=== PATIENT | male | born 2000 | race Caucasian/White ===

== ENCOUNTER 2024-01-20 15:27 | Outpatient (CLI) | payer OTHER, SELFPAY ==
[2024-01-20 17:02] LABS: Free T4 Free Thyroxine* 0.97 ng/dL (0.70-1.85)
== END 2024-01-20 15:28 | disposition home or self-care (01) ==
PROVIDERS: PCP Internal Medicine; Visit Provider Internal Medicine Endocrinology, Diabetes & Metabolism
DX: E03.9 Hypothyroidism, unspecified (principal)
CPT/HCPCS: 36415; 84439; 84443

== ENCOUNTER 2024-01-31 11:38 | Outpatient (CLI) | payer OTHER, SELFPAY ==
--- OUTSIDE RECORDS SUMMARY | 2024-01-31 11:40 | XMS_ITS | Clinical Summary ---
Author Organization [facility] Address [address] [place] [address] Care Team Providers Care Flight Control Manager Name Role Phone Randy Martines M.D. Primary Care Provider [phone] Source Comments Patient records contain information from all sites at [facility]. For routine questions regarding patient records, call [phone] during business hours, M-F 8:00 AM - 5:00 PM Central Time. Record requests for emergency care only can be directed to [phone] at any time.[facility] Allergies No known active allergies Medications Medication Sig Dispensed Refills Start Date End Date Status venlafaxine XR (EFFEXOR-XR) 75 mg 24 hr capsule Take 75 mg by mouth daily. 11/19/2021 Active rosuvastatin (CRESTOR) 10 mg tablet Take 10 mg by mouth daily. Has not taking for a week due to insurance issues. 11/16/2021 Active Adderall XR 20 mg 24 hr capsule Take 20 mg by mouth every morning. Not taking currently will be contacting [facility] to get dosage cut in half. 02/19/2022 Active amitriptyline (ELAVIL) 10 mg tablet TAKE 1 TABLET BY MOUTH EVERYDAY AT BEDTIME 90 tablet 3 05/23/2022 Active SUMAtriptan (IMITREX) 50 mg tablet PLEASE SEE ATTACHED FOR DETAILED DIRECTIONS 9 tablet 1 09/05/2023 Active levothyroxine 75 mcg tabletIndication s:Hypothyroidism Take 1 tablet (75 mcg total) by mouth daily before morning meal. 90 tablet 3 01/29/2024 Active levothyroxine (SYNTHROID, LEVOTHROID) 25 mcg tabletIndication s:Hypothyroidism Take 1 tablet (25 mcg total) by mouth every morning before breakfast. 30 tablet 09/13/2023 Discontinued Active Problems Problem Noted Date Diagnosed Date Hypothyroidism 01/29/2024 Palpitations 01/29/2024 Thyroiditis Carol Ann's 01/29/2024 Hyperlipidemia Mixed 04/26/2022 Anxiety Generalized Disorder 04/26/2022 Depression Major Recurrent Full Remission 2021 Migraine Headache 04/26/2022 Encounters Date Type Department Care Team Description 01/29/2024 3:30 PM CDT Telemedicine Department of Endocrinology in [address] [phone] Oswaldo Ramos M.D. Hypothyroidism (Primary Dx); Thyroiditis Carol Ann's; Palpitations Discharge Disposition: Home or Self Care 01/01/2024 Clinical Communication Department of Endocrinology in [address] [phone] [place]Michelle, R.N. labs for endocrine from Last 3 Months Immunizations Name Administration Dates Next Due H1N1 All Forms 08/09/2009,06/14/2009 HepB Adult (HEPLISAV-B) 05/09/2022,04/26/2022, MMR 05/09/2022,03/20/2022 SARS-COV-2 (COVID-19) - PFIZ ER BIVALENT TS(Discontinued)(12 YEARS OR OLDER) 05/02/2022 Tdap 04/26/2022,03/11/2012 ABDULAZIZ 03/20/2022,03/11/2012 influenza vaccine quad (FLUZ ONE/FLUARIX) (6 months and older)(PF) 05/02/2022,07/10/2021 Family History Medical History Relation Name Comments Alcohol abuse Father Alex Crum Anxiety disorder Father Alex Crum Depression Father Alex Crum Asthma Paternal Grandmother Tory Crum Diabetes Paternal Grandmother Tory Radames Diabetes type II Paternal Grandmother Tory Radames Hyperlipidemia Paternal Grandmother Tory Radames Hypertension Paternal Grandmother Tory Crum Relation Name Status Comments Father Alex Crum Alive Paternal Grandmother Tory Crum Alive Social History Tobacco Use Types Packs/Day Years Used Date Smoking Tobacco: Never Passive Smoke Exposure: Never Smokeless Tobacco: Never Tobacco Cessation:Counseling Given: Yes Alcohol Use Standard Drinks/Week Comments Never 0 (1 standard drink = 0.6 oz pur e alcohol) [facility] Utilities Answer Date Recorded In the past 12 months has e electric, gas, oil, or water company threatened to shut off services in your home? No 08/07/2023 Humiliation, Afraid, Rape, and Kick questionnair e Answer Date Recorded Within the last year, have y ou been afraid of your partner or ex-partner? No 04/21/2022 Within the last year, have y ou been humiliated or emotionally abused in other ways by your partner or ex-partner? No Within the last year, have y ou been kicked, hit, slapped, or otherwise physically hurt by your partner or ex-partner? No 04/21/2022 Within the last year, have y ou been raped or forced to have any kind of sexual activity by your partner or ex-partner? No 04/21/2022 Social Connection and Isolat ion Panel [NHANES] Answer Date Recorded In a typical week, how many times do you talk on the phone with family, friends, or neighbors? More than three times a week 04/21/2022 How often do you get togethe r with friends or relatives? Three times a week 04/21/2022 How often do you attend chur ch or yazidi services? Never 04/21/2022 Do you belong to any clubs o r organizations such as shinto groups, unions, fraternal or athletic groups, or school groups? No 04/21/2022 How often do you attend meet ings of the clubs or organizations you belong to? Never 04/21/2022 Are you , , di vorced, , never , or living with a partner? Living with partner 04/21/2022 AUDIT-C Answer Date Recorded Q1: How often do you have a drink containing alc ohol? Never 04/21/2022 Average Number of Drinks Not on file 022 Frequency of Binge Drinking Not on file 03/30 Overall Financial Resource Strain (CARDIA) Answe r Date Recorded How hard is it for you to pa y for the very basics like food, housing, medical care, and heating? Not very hard 04/21/2022 PHQ-2 Answer Date Recorded PHQ-2 Score 1 08/08/2023 [facility] - Occupational Stress Questionnaire Answer Date Recorded Do you feel stress - tense, restless, nervous, or anxious, or unable to sleep at night because your mind is troubled all the time - these days? To some extent 04/21/2022 Exercise Vital Sign Answer Date Recorde d On average, how many days pe r week do you engage in moderate to strenuous exercise (like a brisk walk)? 3 days 08/07/2023 On average, how many minutes do you engage in exercise at this level? 60 min 08/07/2023 Hunger Vital Sign Answer Date Recorded Within the past 12 months, y ou worried that your food would run out before you got the money to buy more. Sometimes true Within the past 12 months, t he food you bought just didn't last and you didn't have money to get more. Sometimes true 04/2024 PRAPARE - Transportation Answer Date Re corded In the past 12 months, has l ack of transportation kept you from medical appointments or from getting medications? No 07/29 In the past 12 months, has l ack of transportation kept you from meetings, work, or from getting things needed for daily living? No 08/07/2023 Depression Answer Date Recor ded PHQ-9 Total Score (max 27) 11 08/08 Nutrition Answer Date Recorded Nutrition: EVOO Fat Source Yes 08/07 On average, how many serving s of fruits and vegetables do you eat per day (serving size is equal to 1 cup or approximately the size of a tennis ball)? 3-5 08/07/2023 Dental Answer Date Recorded Dental: Regular Dentist Yes 04/21/20 Employment Answer Date Recorded Employment status Employed and actively working without restrictions 08/07/2023 Housing Stability Answer Date Recorded What is your living situation today? I have a [facility] place to live 08/07/2023 Education Answer Date Recorded What is the highest level of school you have completed or the highest degree you have received? Some college, no degree 04/21/2022 Sex and Gender Information Value Date Recorded Sex Assigned at Male 04/26/2022 7:33 AM CDT Gender Identity Male 04/26/2022 7:33 AM CDT Sexual Orientation Bisexual 04/26/2022 7: 33 AM CDT Last Filed Vital Signs Vital Sign Reading Time Taken Comments Blood Pressure 132/86 09/16/2023 4:15 PM FINANCIAL ASSISTANCE SPECIALIST Pulse 106 09/16/2023 4:15 PM FINANCIAL ASSISTANCE SPECIALIST Temperature 36.7 ??C (98.1 ??F) 09/16/2023 4:15 PM CS T Respiratory Rate 20 09/16/2023 4:15 PM FINANCIAL ASSISTANCE SPECIALIST Oxygen Saturation 98% 08/08/2023 4:19 PM FINANCIAL ASSISTANCE SPECIALIST Inhaled Oxygen Concentration - - Weight 94.3 kg (207 lb 14.3 oz) 01/29/2024 3:22 PM CDT Height 174 cm (5' 8.5) 08/08/2023 4:19 PM FINANCIAL ASSISTANCE SPECIALIST Body Mass Index 31.15 08/08/2023 4:19 PM FINANCIAL ASSISTANCE SPECIALIST Plan of Treatment Health Maintenance Due Date Last Done Comments HIV Screening 2000 Hepatitis C Screening 2000 HPV Vaccines (1 - Male 3-dos e series) 01/17/2015 COVID-19 Vaccine (4 - 2022-2 4 season) 2023 05/02/2022, 12/01/2020, 11/10/2020 Depression Monitoring (PHQ-9) 12/07/2023 08/08/2023 Influenza Vaccine (#1) 2024 , 07/10/2021 Thyroid Stimulating Hormone (TSH) test for thyroid function 09/16/2024 09/16/2023, 08/08/2023, 08/05/2023 Lipid (Cholesterol) Screening 08/08/2028 08/08/2023 DTaP,Tdap,and Td Vaccines (3 - Td or Tdap) 04/26/2032 04/26/2022, 03/11/2012 Varicella Vaccines Completed 03/20/2022, 03/11/2012 Hepatitis B Vaccines Completed 05/09/2022, 04/26/2022, 03/20/2022 Pneumococcal vaccine (0-64 years) Aged Out No longer eligible b ased on patient's age to complete this topic Procedures Procedure Name Priority Date/Time Associated Diagnosis Comments THYROID FUNCTION CASCADE, S Routine 09/16/2023 5:21 PM FINANCIAL ASSISTANCE SPECIALIST Hypothyroidism LIPID PANEL, S Routine 08/08/2023 4:51 PM FINANCIAL ASSISTANCE SPECIALIST Screening Condition from Last 3 Months or Most Recently Relevant to Health Maintenance Results * (ABNORMAL) Thyroid Function [place] (09/16/2023 5:21 PM FINANCIAL ASSISTANCE SPECIALIST) TSH, Sensitive 6.2(H) 0.3 - 4.2 mIU/L 09/16/2023 6:12 PM FINANCIAL ASSISTANCE SPECIALIST NPRG Blood (Blood, Venous) 09/16/2023 5:21 PM FINANCIAL ASSISTANCE SPECIALIST 09/16/2023 5:35 PM FINANCIAL ASSISTANCE SPECIALIST Robbi Nation M.D. LAB BLOOD ADD-ON [facility] [address] [place] [address], [facility] NPRG [facility] [address] [place] [address] * (ABNORMAL) Lipid Panel (08/08/2023 4:51 PM FINANCIAL ASSISTANCE SPECIALIST) Triglycerides 266(H) mg/dL 08/08/2023 8:43 PM FINANCIAL ASSISTANCE SPECIALIST NPRG Comment: ----REFERENCE VALUE---- Normal: <150 mg/dL Borderline High: 150-199 mg/dL High: 200-499 mg/dL Very High: > or =500 mg/dL Cholesterol, Total 255(H) mg/dL 2023 8:43 PM FINANCIAL ASSISTANCE SPECIALIST NPRG Comment: ----REFERENCE VALUE---- Desirable: < 200 mg/dL Borderline High: 200 - 239 mg/dL High: > or = 240 mg/dL Cholesterol, LDL, Calculated 168(H) mg/dL 08/08/2023 8:43 PM FINANCIAL ASSISTANCE SPECIALIST NPRG Comment: ----REFERENCE VALUE---- Desirable: <100 mg/dL Above Desirable: 100-129 mg/dL Borderline High: 130-159 mg/dL High: 160-189 mg/dL Very High: >=190 mg/dL ----ADDITIONAL INFORMATION---- LDL cholesterol calculated using the Young/NIH equation. Cholesterol, HDL 37(L) >=40 mg/dL 08/08/19 8:43 PM FINANCIAL ASSISTANCE SPECIALIST NPRG Cholesterol, Non-HDL, Calculated 218(H) mg/dL 08/08/2023 8:43 PM FINANCIAL ASSISTANCE SPECIALIST NPRG Comment: ----REFERENCE VALUE---- Desirable: <130 mg/dL Above Desirable: 130-159 mg/dL Borderline High: 160-189 mg/dL High: 190-219 mg/dL Very High: > or =220 mg/dL Fasting (8 HR or more) No 08/08/2023 7:23 PM FINANCIAL ASSISTANCE SPECIALIST NPRG Blood (Blood, Venous) 08/08/2023 4:51 PM FINANCIAL ASSISTANCE SPECIALIST 08/08/2023 7:23 PM FINANCIAL ASSISTANCE SPECIALIST Robbi Nation M.D. LAB BLOOD ADD-ON [facility] [address] [place] [address], [facility] NPRG [facility] [address] [place] [address] from Last 3 Months or Most Recently Relevant to Health Maintenance Care Teams Flight Control Manager Relationship Specialty Start Date End Date Randy Martines M.D. [address] [place] [phone] PCP - General Family Medicine 04/26/22
--- OUTSIDE RECORDS SUMMARY | 2024-01-31 11:40 | XMS_ITS | Encounter Summary ---
Author Organization [facility] Address [address] [place] [address] Care Team Providers Care Market Survey Representative Name Role Phone Randy Martines M.D. Primary Care Provider [phone] Reason for Referral * Outpatient (Routine) - Authorized Specialty Diagnoses / Procedures Referred By Nicolette martinez Referred To Contact Diagnoses Hypothyroidism Thyroiditis Carol Ann's Procedures US Thyroid Oswaldo Ramos M.D. [address] [place] [address] [facility] Referral ID Status Reason Start Date Expiration Date V isits Requested Visits Authorized [id number] Authorized 01/29/2024 01/28/2025 1 1 Reason for Visit * Reason Comments Hypothyroidism * Outpatient (Routine) - Closed Specialty Diagnoses / Procedures Referred By Nicolette martinez Referred To Contact Endocrinology Diagnoses Hypothyroidism Robbi Nation M.D. [address] [place] [phone] [facility] Referral ID Status Reason Start Date Expiration Date Visits Re quested Visits Authorized [id number] Closed 09/20/2023 03/21/2025 1 1 Encounter Details Date Type Department Care Team (Latest Contact Info) Description 01/29/2024 3:30 PM CDT Telemedicine Department of Endocrinology in [place], [place] [address] [place] [phone] Oswaldo Ramos M.D. [address] [place] [phone] Hypothyroidism (Primary Dx); Thyroiditis Carol Ann's; Palpitations Discharge Disposition: Home or Self Care Social History Tobacco Use Types Packs/Day Years Used Date Smoking Tobacco: Never Passive Smoke Exposure: Never Smokeless Tobacco: Never Alcohol Use Standard Drinks/Week Comments Never 0 (1 standard drink = 0.6 oz pur e alcohol) [facility] Utilities Answer Date Recorded In the past 12 months has e [employer], gas, oil, or water [employer] threatened to shut off services in your [...] often do you attend chur ch or anabaptist services? Never 04/21/2022 Do you belong to any clubs o r organizations such as denominational groups, unions, fraternal or athletic groups, or [...] Answer Date Recorded PHQ-2 Score 1 08/08/2023 [facility] Occupat ional Health - Occupational Stress Questionnaire Answer Date Recorded [...] living situation today? I have a [facility] place to live 08/07/2023 Education Answer Date Recorded What is the highest level of school you have completed or the highest degree you have received? Some college, no degree 04/21/2022 Sex and Gender Information Value Date Recorded Sex Assigned at Male 04/26/2022 7:33 AM CDT Gender Identity Male 04/26/2022 7:33 AM CDT Sexual Orientation Bisexual 04/26/2022 7: 33 AM CDT documented as of this encounter Last Filed Vital Signs Vital Sign Reading Time Taken Comments Blood Pressure - - Pulse - - Temperature - - Respiratory Rate - - Oxygen Saturation - - Inhaled Oxygen Concentration - - Weight 94.3 kg (207 lb 14.3 oz) 01/29/2024 3:22 PM CDT Height - - Body Mass Index 31.15 08/08/2023 4:19 PM RANGE MECHANIC documented in this encounter Consult Notes * Oswaldo Ramos M.D. - 01/29/2024 3:30 PM CDT Endocrinology Clinic Note New Consult Date:01/29/2024 Visit conducted via real-time audio/video technology by Oswaldo Ramos M.D. in [facility] to the patient in patient's home in [place], [place] Chief Complaint Hypothyroidism Referred by Robbi Nation M.D. History of Present Illness Salvador Crum is a 24 y.o. male with PMH as below who presents to clinic for hypothyroidism. The patient has a constellation of symptoms including chronic headaches, occasional fatigue, ongoing weight gain despite watching his diet and being on Adderall, occasional palpitations and tachycardia, muscle twitching, increased sweating, bowel movements fluctuate between diarrhea and constipation. He had his TSH checked in 07/2023 which was mildly elevated at 6.3, 2 days later it was repeated with a TSH of 5 and normal free T4 of 1.2 (this was on levothyroxine for 2 days), his PCP started him on 25 mcg of levothyroxine daily which he has been taking since then, he continued to show elevated TSH on repeated testing, currently his free T4 is low normal. He also reports 10 years history of throat discomfort with the need to frequently clear his throat,allergy medications did not help, acid reducing medications does not help. He has not aware of any family history of thyroid disorders. He is currently on levothyroxine 25 mcg daily, he does not believe that his symptoms improved afterstarting levothyroxine. He has been regularly taking it every morning. Past Medical History: Diagnosis Date Anxiety Generalized Disorder Depressive Disorder Hyperlipidemia 01/30/2020 Migraine Headache No past surgical history on file. Social History Tobacco Use Smoking status: Never Passive exposure: Never Smokeless tobacco: Never Vaping Use Vaping status: never used Substance Use Topics Alcohol use: Never Drug use: Never Family History Problem Relation Name Age of Onset Anxiety disorder Father Alex Crum Depression Father Alex Crum Alcohol abuse Father Alex Crum Diabetes type II Paternal Grandmother Tory Crum Asthma Paternal Grandmother Tory Crum Hypertension Paternal Grandmother Tory Crum Hyperlipidemia Paternal Grandmother Tory Crum Diabetes Paternal Grandmother Tory Crum No Known Allergies Current Outpatient Medications Medication Sig Dispense Refill levothyroxine 75 mcg tablet Take 1 tablet (75 mcg total) by mouth daily before morning meal. 90 tablet 3 Adderall XR 20 mg 24 hr capsule Take 20 mg by mouth every morning. Not taking currently will be contacting [facility] to get dosage cut in half. amitriptyline (ELAVIL) 10 mg tablet TAKE 1 TABLET BY MOUTH EVERYDAY AT BEDTIME 90 tablet 3 rosuvastatin (CRESTOR) 10 mg tablet Take 10 mg by mouth daily. Has not taking for a week due to insurance issues. SUMAtriptan (IMITREX) 50 mg tablet PLEASE SEE ATTACHED FOR DETAILED DIRECTIONS 9 tablet 1 venlafaxine XR (EFFEXOR-XR) 75 mg 24 hr capsule Take 75 mg by mouth daily. No current facility-administered medications for this visit. Review of Systems A 10-system review was conducted and was negative except for what's noted in the HPI. The followingsystems were reviewed: Constitutional, cardiovascular, respiratory, gastrointestinal, genitourinary, musculoskeletal, neurologic, psychiatric, endocrinological, and hematological. Physical Examination Vitals: 01/29/24 1522 Weight: 94.3 kg No vitals taken during virtual visit. General: well developed, alert, oriented, not in distress Neck: appears supple, no visible goiter or nodules Pulmonary: easy work of breathing Cardiovascular: appears warm and well-perfused Neurological: alert and oriented, conversant Review of Labs The following labs were reviewed and discussed with the patient on 01/29/2024 01/19/2025 TSH 5.23 (H) Free T4 0.97 Latest Reference Range & Units 08/05/23 19:00 08/08/23 16:51 09/16/23 17:21 TSH, Sensitive 0.3 - 4.2 mIU/L 6.3 (H) 5.0 (H) 6.2 (H) T4 (Thyroxine), Free, S 0.9 - 1.7 ng/dL 1.2 1.2 Latest Reference Range & Units 09/16/23 17:21 Thyroperoxidase Ab, S <34.0 IU/mL 417.0 (H) Radiology Review The following radiological reports/images were reviewed and discussed with the patient on 01/29/2024 Chart Review Previous records, other specialties and external notes were reviewed on 01/29/2024 and included in the note Assessment And Plan Salvador Crum is a 24 y.o. male with #1 Hypothyroidism #2 Thyroiditis Carol Ann's #3 Palpitations The patient has a constellation of symptoms that could be consistent with hypothyroidism. His TSH was mildly elevated before starting levothyroxine and continues to be elevated on levothyroxine 25 mcg daily started by his PCP. I do not have free T4 levels before initiating levothyroxine so I am notsure if his blood work was consistent with subclinical hypothyroidism versus primary hypothyroidism. 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 I explained to the patient that the cause of Carol Ann's thyroiditis is thought to be a combinationof genetic susceptibility and environmental factors. I explained that it is an autoimmune-mediated destruction of the thyroid gland (cell and antibody mediated) Based on his weight, his levothyroxine dose should be close to 150 mcg daily, however because his blood work is showing only mildly low free T4 I would put him on a lower dose, we will increase to 75mcg daily. Due to his symptoms of palpitations, increased sweating, headaches, I want to rule out pheochromocytoma however I have very low clinical suspicion for this. The patient is on Adderall, he will hold it for 1 week before testing. Plan: Increase levothyroxine to 75 mcg daily He was counseled about the proper way of taking levothyroxine to guarantee full absorption No need to monitor TPO levels Obtain ultrasound of the thyroid due to his ongoing neck/throat area discomfort Check TSH, free T4 in 2 months Check plasma metanephrines with next set of labs All questions were answered to my best knowledge. Thanks for referring this pleasant patient to endocrinology Oswaldo Ramos MD.................... 01/29/2024 Endocrinology, Diabetes and Metabolism documented in this encounter Plan of Treatment Scheduled Orders Name Type Priority Associated Diagnoses Orde r Schedule US Thyroid Imaging RAD - Routine (m ost inpatients and all outpatients) Hypothyroidism Thyroiditis Carol Ann's Expected: 01/29/2024, Expires: 04/30/2025 S-TSH (Thyroid-Stimulati ng Hormone - Sensitive) Lab Routine Hypothyroidism Thyroiditis Carol Ann's Expected: 03/31/2024, Expires: 07/31/2024 T4 (Thyroxine), Free Lab Routine Hypothyroidism Thyroiditis Carol Ann's Expected: 03/31/2024, Expires: 07/31/2024 Metanephrines, Fractionated, Free Lab Routine Palpitations Expected: 03/31/2024, Expires: 04/30/2025 documented as of this encounter Visit Diagnoses Diagnosis Hypothyroidism- Primary Thyroiditis Carol Ann's Palpitations documented in this encounter Additional Health Concerns Assessment Noted Time PHQ-9 Depression Total Score: 11 024 4:21 PM RANGE MECHANIC documented as of this encounter Care Teams Market Survey Representative Relationship Specialty Start Date End Date Randy Martines M.D. [address] [facility] [place] [phone] PCP - General Family Medicine 04/26/22 documented as of this encounter
--- OUTSIDE RECORDS SUMMARY | 2024-01-31 11:40 | XMS_ITS | Referral Summary ---
Author Organization [facility] Address [address] [place] [address] Care Team Providers Care Bar Attendant Name Role Phone Randy Martines M.D. Primary Care Provider [phone] Source Comments Patient records contain information from all sites at [facility]. For routine questions regarding patient records, call [phone] during business hours, M-F 8:00 AM - 5:00 PM Central Time. Record requests for emergency care only can be directed to [phone] at any time.[facility] Encounters Date Type Department Care Team Description 01/29/2024 3:30 PM CDT Telemedicine Department of Endocrinology in [address] [phone] Oswaldo Ramos M.D. Hypothyroidism (Primary Dx); Thyroiditis Carol Ann's; Palpitations Discharge Disposition: Home or Self Care 01/01/2024 Clinical Communication Department of Endocrinology in [address] [phone] MarbleMichelle, RMollyNMolly labs for endocrine from Last 3 Months Allergies No known active allergies Medications Medication [...] Recurrent Full Remission 2021 Migraine Headache 04/26/2022 Immunizations Name Administration Dates Next Due H1N1 All Forms 08/09/2009,06/14/2009 HepB Adult (HEPLISAV-B) 05/09/2022,04/26/2022, MMR 05/09/2022,03/20/2022 SARS-COV-2 (COVID-19) - PFIZ ER BIVALENT TS(Discontinued)(12 YEARS OR OLDER) 05/02/2022 Tdap 04/26/2022,03/11/2012 ABDULAZIZ 03/20/2022,03/11/2012 influenza vaccine quad (FLUZ ONE/FLUARIX) (6 months and older)(PF) 05/02/2022,07/10/2021 Social History Tobacco Use Types Packs/Day Years Used Date Smoking Tobacco: Never Passive Smoke Exposure: Never Smokeless Tobacco: Never Tobacco Cessation:Counseling Given: Yes Alcohol Use Standard Drinks/Week Comments Never 0 (1 standard drink = 0.6 oz pur e alcohol) [facility] Utilities Answer Date Recorded In the past [...] week 04/21/2022 How often do you attend [facility] or sikhism services? Never 04/21/2022 Do you belong to any clubs o r organizations such as sikh groups, unions, fraternal or athletic groups, or [...] Answer Date Recorded PHQ-2 Score 1 08/08/2023 [facility] of Occupat ional Health - Occupational Stress [...] your living situation today? I have a [facility] place to live 08/07/2023 Education Answer Date [...] Comments Blood Pressure 132/86 09/16/2023 4:15 PM CLIENT TECHNOLOGIES SPECIALIST Pulse 106 09/16/2023 4:15 PM CLIENT TECHNOLOGIES SPECIALIST Temperature 36.7 ??C (98.1 ??F) 09/16/2023 4:15 PM CS T Respiratory Rate 20 09/16/2023 4:15 PM CLIENT TECHNOLOGIES SPECIALIST Oxygen Saturation 98% 08/08/2023 4:19 PM CLIENT TECHNOLOGIES SPECIALIST Inhaled Oxygen Concentration - - Weight 94.3 kg (207 lb 14.3 oz) 01/29/2024 3:22 PM CDT Height 174 cm (5' 8.5) 08/08/2023 4:19 PM CLIENT TECHNOLOGIES SPECIALIST Body Mass Index 31.15 08/08/2023 4:19 PM CLIENT TECHNOLOGIES SPECIALIST Plan of Treatment Not on file Procedures Procedure Name Priority Date/Time Associated Diagnosis Comments THYROID FUNCTION CASCADE, S Routine 09/16/2023 5:21 PM CLIENT TECHNOLOGIES SPECIALIST Hypothyroidism LIPID PANEL, S Routine 08/08/2023 4:51 PM CLIENT TECHNOLOGIES SPECIALIST Screening Condition from Last 3 Months or Most Recently Relevant to Health Maintenance Results * (ABNORMAL) Thyroid Function [place] (09/16/2023 5:21 PM CLIENT TECHNOLOGIES SPECIALIST) TSH, Sensitive 6.2(H) 0.3 - 4.2 mIU/L 09/16/2023 6:12 PM CLIENT TECHNOLOGIES SPECIALIST NPRG Blood (Blood, Venous) 09/16/2023 5:21 PM CLIENT TECHNOLOGIES SPECIALIST 09/16/2023 5:35 PM CLIENT TECHNOLOGIES SPECIALIST Robbi Nation M.D. LAB BLOOD ADD-ON [facility] [address] [place] [address], [facility] NPRG [facility] [address] [place] [address] * (ABNORMAL) Lipid Panel (08/08/2023 4:51 PM CLIENT TECHNOLOGIES SPECIALIST) Triglycerides 266(H) mg/dL 08/08/2023 8:43 PM CLIENT TECHNOLOGIES SPECIALIST NPRG Comment: ----REFERENCE VALUE---- Normal: <150 mg/dL Borderline High: 150-199 mg/dL High: 200-499 mg/dL Very High: > or =500 mg/dL Cholesterol, Total 255(H) mg/dL 2023 8:43 PM CLIENT TECHNOLOGIES SPECIALIST NPRG Comment: ----REFERENCE VALUE---- Desirable: < 200 mg/dL Borderline High: 200 - 239 mg/dL High: > or = 240 mg/dL Cholesterol, LDL, Calculated 168(H) mg/dL 08/08/2023 8:43 PM CLIENT TECHNOLOGIES SPECIALIST NPRG Comment: ----REFERENCE VALUE---- Desirable: <100 mg/dL Above Desirable: 100-129 mg/dL Borderline High: 130-159 mg/dL High: 160-189 mg/dL Very High: >=190 mg/dL ----ADDITIONAL INFORMATION---- LDL cholesterol calculated using the Young/NIH equation. Cholesterol, HDL 37(L) >=40 mg/dL 08/08/19 8:43 PM CLIENT TECHNOLOGIES SPECIALIST NPRG Cholesterol, Non-HDL, Calculated 218(H) mg/dL 08/08/2023 8:43 PM CLIENT TECHNOLOGIES SPECIALIST NPRG Comment: ----REFERENCE VALUE---- Desirable: <130 mg/dL Above Desirable: 130-159 mg/dL Borderline High: 160-189 mg/dL High: 190-219 mg/dL Very High: > or =220 mg/dL Fasting (8 HR or more) No 08/08/2023 7:23 PM CLIENT TECHNOLOGIES SPECIALIST NPRG Blood (Blood, Venous) 08/08/2023 4:51 PM CLIENT TECHNOLOGIES SPECIALIST 08/08/2023 7:23 PM CLIENT TECHNOLOGIES SPECIALIST Robbi Nation M.D. LAB BLOOD ADD-ON [facility] [address] [place] [address], [facility] NPRG [facility] [address] [place] [address] from Last 3 Months or Most Recently Relevant to Health Maintenance Care Teams Bar Attendant Relationship Specialty Start Date End Date Randy Martines M.D. [facility] [place] [phone] PCP - General Family Medicine 04/26/22
--- OUTSIDE RECORDS SUMMARY | 2024-01-31 11:40 | XMS_ITS | Encounter Summary ---
Author Organization [facility] Address [address] [place] [address] Care Team Providers Care Structural Draftsman Name Role Phone Randy Martines M.D. Primary Care Provider [phone] Reason for Visit * Reason Onset Date Comments labs for endocrine 01/01/2024 Encounter Details Date Type Department Care Team (Latest Contact Info) Description 01/01/2024 Clinical Communication Department of Endocrinology in [place], [place] [address] [place] [phone] [place]Michelle, RMollyN. [address] [place] [phone] labs for endocrine Social History Tobacco Use Types Packs/Day Years Used Date Smoking Tobacco: Never Passive Smoke Exposure: Never Smokeless Tobacco: Never Alcohol Use Standard Drinks/Week Comments Never 0 (1 standard drink = 0.6 oz pur e alcohol) [facility] Utilities Answer Date Recorded In the past 12 months has [facility] [employer], oil, or water [employer] threatened to shut off services in your [...] often do you attend chur ch or mu-ism services? Never 04/21/2022 Do you belong to any clubs o r organizations such as latter day groups, unions, fraternal or athletic groups, or [...] Answer Date Recorded PHQ-2 Score 1 08/08/2023 [facility] of Occupat ionin Health - Occupational Stress Questionnaire Answer Date [...] your living situation today? I have a [facility] place to live 08/07/2023 Education Answer [...] AM CDT documented as of this encounter Miscellaneous Notes * Telephone Encounter - Michelle Pena RNamita - 01/21/2024 9:40 AM CDT Images from the original note were not included. Pt has had 2 recent TPO but is wondering if you would repeat for 01/28 new consult documented in this encounter Plan of Treatment Scheduled Orders Name Type Priority Associated Diagnoses Orde r Schedule S-TSH (Thyroid-Stimulating Hormone - Sensitive) Lab Routine Hypothyroidism Expected: 01/20/2024, Expires: 04/02/2025 T4 (Thyroxine), Free Lab Routine Hypothyroidism Expected: 01/20/2024, Expires: 04/02/2025 documented as of this encounter Visit Diagnoses Diagnosis Hypothyroidism- Primary documented in this encounter Additional Health Concerns Assessment Noted Time PHQ-9 Depression Total Score: 11 024 4:21 PM SCIENTIFIC RECRUITER documented as of this encounter Care Teams Structural Draftsman Relationship Specialty Start Date End Date Randy Martines M.D. [address] [place] [phone] PCP - General Family Medicine 04/26/22 documented as of this encounter
--- OUTSIDE RECORDS SUMMARY | 2024-01-31 11:40 | XMS_ITS ---
Author Organization [facility] Address [address] [place] [address] Care Team Providers Care Chrome Cleaner Name Role Phone Unavailable Unavailable Unavailable Surgery Details Not on file Complications Check Surgery Details section. Procedure Estimated Blood Loss Check Surgery Details section. Procedure Findings Check Surgery Details section. Procedure Specimens Taken Check Surgery Details section.
--- NOTE | 2024-01-31 11:45 | CRLHL7_ITS ---
For Patients: As a result of the Century Cures Act, medical imaging exams and procedure reports are released immediately into your electronic medical record. You may view this report before your referring provider. If you have questions, please contact your health care provider. INDICATION: Hypothyroidism COMPARISON: none TECHNIQUE: Eric scale and color Doppler images were acquired of the thyroid gland. FINDINGS: Hyperechoic nodule within the left thyroid lobe measures 4 x 4 x 5 millimeters, TR 3. The right lobe measures 4.5 x 1.5 x 1.6 cm and the left lobe measures 3.9 x 1.5 x 1.2 cm in size. Isthmus measures 3 millimeters. The color Doppler images demonstrate normal vascularity. There is no evidence of cervical lymphadenopathy or parathyroid mass. IMPRESSION: Incidental subcentimeter left thyroid lobe nodule which does not require follow-up. The remainder of the examination is within normal limits. Dictated by Juan Hunter MD @ 01/31/2024 12:50:51 PM (Electronically Signed)
== END 2024-01-31 11:39 | disposition home or self-care (01) ==
LOC: US 11:39
PROVIDERS: PCP Internal Medicine
DX: E03.9 Hypothyroidism, unspecified (principal); E06.3 Autoimmune thyroiditis
CPT/HCPCS: 76536

== ENCOUNTER 2024-02-14 12:13 | Emergency (ER) | payer OTHER, SELFPAY ==
[2024-02-14 12:19] VITALS: BP 141/99; PULSE 105; RESP 16; TEMP 36.6; O2SAT 98; BMI 30.1
--- OUTSIDE RECORDS SUMMARY | 2024-02-14 12:55 | XMS_ITS | Clinical Summary ---
Author Organization [facility] Address [address] [place] [address] Care Team Providers Care Strategy Lead Name Role Phone Randy Martines M.D. Primary Care Provider [phone] Source Comments Patient records contain information from all sites at [facility]. For routine questions regarding patient records, call [phone] during business hours, M-F 8:00 AM - 5:00 PM Central Time. Record requests for emergency care only can be directed to [phone] at any time.[facility] Allergies No known active allergies Medications [...] PM CDT Telemedicine Department of Endocrinology in [address] [phone] Oswaldo Ramos M.D. Hypothyroidism (Primary Dx); Thyroiditis Carol Ann's; Palpitations Discharge Disposition: Home or Self Care 01/01/2024 Clinical Communication Department of Endocrinology in [address] [phone] WilliamsMichelle, R.N. labs for endocrine from Last 3 [...] drink = 0.6 oz pur e alcohol) [facility] Utilities Answer Date Recorded In the [...] often do you attend chur ch or latter day services? Never 04/21/2022 Do you belong to any clubs o r organizations such as yazdanism groups, unions, fraternal or athletic groups, or [...] Answer Date Recorded PHQ-2 Score 1 08/08/2023 [facility] of Occupat ional [facility] - Occupational Stress Questionnaire Answer Date Recorded [...] living situation today? I have a [facility] place to live 08/07/2023 Education Answer [...] Comments Blood Pressure 132/86 09/16/2023 4:15 PM ELECTRICAL ACCESSORIES I ASSEMBLER Pulse 106 09/16/2023 4:15 PM ELECTRICAL ACCESSORIES I ASSEMBLER Temperature 36.7 ??C (98.1 ??F) 09/16/2023 4:15 PM CS T Respiratory Rate 20 09/16/2023 4:15 PM ELECTRICAL ACCESSORIES I ASSEMBLER Oxygen Saturation 98% 08/08/2023 4:19 PM ELECTRICAL ACCESSORIES I ASSEMBLER Inhaled Oxygen Concentration - - Weight 94.3 kg (207 lb 14.3 oz) 01/29/2024 3:22 PM CDT Height 174 cm (5' 8.5) 08/08/2023 4:19 PM ELECTRICAL ACCESSORIES I ASSEMBLER Body Mass Index 31.15 08/08/2023 4:19 PM ELECTRICAL ACCESSORIES I ASSEMBLER Plan of Treatment Health Maintenance Due Date [...] Procedure Name Priority Date/Time Associated Diagnosis Comments OUTSIDE US BODY Routine 01/31/2024 12:00 PM CDT THYROID FUNCTION CASCADE, S Routine 09/16/2023 5:21 PM ELECTRICAL ACCESSORIES I ASSEMBLER Hypothyroidism LIPID PANEL, S Routine 08/08/2023 4:51 PM ELECTRICAL ACCESSORIES I ASSEMBLER Screening Condition from Last 3 Months or Most Recently Relevant to Health Maintenance Results * US THYROID-Outside US Body (01/31/2024 12:00 PM CDT) 01/31/2024 11:5 7 AM CDT Narrative IIMS - 01/31/2024 12:18 PM CDT This order has been created and auto-finalized to support the import of outside images. If available, original interpretation can be found on the Media Tab in Chart Review, in Document Viewer, as an image in QREADS or as an Addendum. If a re-interpretation or overread is required please follow defined workflow.?? Provider Not In System IMG US PROCEDURES IIRI NA * (ABNORMAL) Thyroid Function [place] (09/16/2023 5:21 PM ELECTRICAL ACCESSORIES I ASSEMBLER) TSH, Sensitive 6.2(H) 0.3 - 4.2 mIU/L 09/16/2023 6:12 PM ELECTRICAL ACCESSORIES I ASSEMBLER NPRG Blood (Blood, Venous) 09/16/2023 5:21 PM ELECTRICAL ACCESSORIES I ASSEMBLER 09/16/2023 5:35 PM ELECTRICAL ACCESSORIES I ASSEMBLER Robbi Nation M.D. LAB BLOOD ADD-ON [facility] [address] [place] [address], [facility] NPRG [facility] [address] [place] [address] * (ABNORMAL) Lipid Panel (08/08/2023 4:51 PM ELECTRICAL ACCESSORIES I ASSEMBLER) Triglycerides 266(H) mg/dL 08/08/2023 8:43 PM ELECTRICAL ACCESSORIES I ASSEMBLER NPRG Comment: ----REFERENCE VALUE---- Normal: <150 mg/dL Borderline High: 150-199 mg/dL High: 200-499 mg/dL Very High: > or =500 mg/dL Cholesterol, Total 255(H) mg/dL 2023 8:43 PM ELECTRICAL ACCESSORIES I ASSEMBLER NPRG Comment: ----REFERENCE VALUE---- Desirable: < 200 mg/dL Borderline High: 200 - 239 mg/dL High: > or = 240 mg/dL Cholesterol, LDL, Calculated 168(H) mg/dL 08/08/2023 8:43 PM ELECTRICAL ACCESSORIES I ASSEMBLER NPRG Comment: ----REFERENCE VALUE---- Desirable: <100 mg/dL Above Desirable: 100-129 mg/dL Borderline High: 130-159 mg/dL High: 160-189 mg/dL Very High: >=190 mg/dL ----ADDITIONAL INFORMATION---- LDL cholesterol calculated using the Young/NIH equation. Cholesterol, HDL 37(L) >=40 mg/dL 08/08/19 8:43 PM ELECTRICAL ACCESSORIES I ASSEMBLER NPRG Cholesterol, Non-HDL, Calculated 218(H) mg/dL 08/08/2023 8:43 PM ELECTRICAL ACCESSORIES I ASSEMBLER NPRG Comment: ----REFERENCE VALUE---- Desirable: <130 mg/dL Above Desirable: 130-159 mg/dL Borderline High: 160-189 mg/dL High: 190-219 mg/dL Very High: > or =220 mg/dL Fasting (8 HR or more) No 08/08/2023 7:23 PM ELECTRICAL ACCESSORIES I ASSEMBLER NPRG Blood (Blood, Venous) 08/08/2023 4:51 PM ELECTRICAL ACCESSORIES I ASSEMBLER 08/08/2023 7:23 PM ELECTRICAL ACCESSORIES I ASSEMBLER Robbi Nation M.D. LAB BLOOD ADD-ON [facility] [address] [place] [address], [facility] NPRG [facility] [address] [place] [address] from Last 3 Months or Most Recently Relevant to Health Maintenance Care Teams Strategy Lead Relationship Specialty Start Date End Date Randy Martines M.D. [address] [place] [phone] PCP - General Family Medicine 04/26/22
[2024-02-14] MEDS: ONDANSETRON ODT 4 MG TAB PO (12:56)
[2024-02-14] MEDS: LORazepam 0.5 MG TABLET PO (12:56)
--- OUTSIDE RECORDS SUMMARY | 2024-02-14 12:56 | XMS_ITS | Encounter Summary ---
Author Organization [facility] Address [address] [place] [address] Care Team Providers Care Shake Feeder Name Role Phone Randy Martines M.D. Primary Care Provider [phone] Reason for Referral * Outpatient (Routine) - Authorized Specialty Diagnoses / Procedures Referred By Nicolette martinez Referred To Contact Diagnoses Hypothyroidism Thyroiditis Carol Ann's Procedures US Thyroid Oswaldo Ramos M.D. [address] [place] [phone] [facility] Referral ID Status Reason Start Date Expiration Date V isits Requested Visits Authorized [id number] Authorized 01/29/2024 01/28/2025 1 1 Reason for Visit * Reason Comments Hypothyroidism * Outpatient (Routine) - Closed Specialty Diagnoses / Procedures Referred By Nicolette martinez Referred To Contact Endocrinology Diagnoses Hypothyroidism Robbi Nation M.D. [address] [place] [address] [facility] Referral ID Status Reason Start Date Expiration Date Visits Re quested Visits Authorized [id number] Closed 09/20/2023 03/21/2025 1 1 Encounter Details Date Type Department Care Team (Latest Contact Info) Description 01/29/2024 3:30 PM CDT Telemedicine Department of Endocrinology in [place], [place] [address] [place] [phone] Oswaldo Ramos M.D. [address] [place] [phone] Hypothyroidism (Primary Dx); Thyroiditis Carol Ann's; Palpitations Discharge Disposition: Home or Self Care Social History Tobacco Use Types Packs/Day Years Used Date Smoking Tobacco: Never Passive Smoke Exposure: Never Smokeless Tobacco: Never Alcohol Use Standard Drinks/Week Comments Never 0 (1 standard drink = 0.6 oz pur e alcohol) [facility] Utilities Answer Date Recorded In the past 12 months has e [employer], gas, oil, or water [employer] threatened to shut off services in your [...] often do you attend chur ch or jew services? Never 04/21/2022 Do you belong to any clubs o r organizations such as tenriism groups, unions, fraternal or athletic groups, or [...] Answer Date Recorded PHQ-2 Score 1 08/08/2023 [facility] of Occupat ional Health - Occupational Stress [...] Body Mass Index 31.15 08/08/2023 4:19 PM OIL PUMP STATION OPERATOR CHIEF documented in this encounter Consult Notes * Oswaldo Ramos M.D. - 01/29/2024 3:30 PM CDT Endocrinology Clinic Note New Consult Date:01/29/2024 Visit conducted via real-time audio/video technology by Oswaldo Ramos M.D. in [facility] to the patient in patient's home in [place], [place] Chief Complaint Hypothyroidism Referred by Robbi [...] morning. Not taking currently will be contacting [facility] to get dosage cut in half. amitriptyline [...] Depression Total Score: 11 024 4:21 PM OIL PUMP STATION OPERATOR CHIEF documented as of this encounter Care Teams Shake Feeder Relationship Specialty Start Date End Date Randy Martines M.D. [address] [place] [phone] PCP - General Family Medicine 04/26/22 documented as of this encounter
--- OUTSIDE RECORDS SUMMARY | 2024-02-14 12:56 | XMS_ITS | Encounter Summary ---
Author Organization [facility] Address [address] [place] [address] Care Team Providers Care Senior Training Specialist Name Role Phone Randy Martines M.D. Primary Care Provider Reason for Visit * Reason Onset Date Comments labs for endocrine 01/01/2024 Encounter Details Date Type Department Care Team (Latest Contact Info) Description 01/01/2024 Clinical Communication Department of Endocrinology in [place], [place] [address] [place] [phone] DoudsMichelle, RMollyN. [address] [place] [phone] labs for endocrine Social History Tobacco Use Types Packs/Day Years Used Date Smoking Tobacco: Never Passive Smoke Exposure: Never Smokeless Tobacco: Never Alcohol Use Standard Drinks/Week Comments Never 0 (1 standard drink = 0.6 oz pur e alcohol) [facility] Utilities Answer Date Recorded In the past 12 months has [facility] [employer], oil, or water [employer] threatened to shut off services in your [...] often do you attend chur ch or samaritan services? Never 04/21/2022 Do you belong to any clubs o r organizations such as lutheran groups, unions, fraternal or athletic groups, or [...] Answer Date Recorded PHQ-2 Score 1 08/08/2023 [facility] of Occupat ionwi Health - Occupational Stress Questionnaire Answer Date [...] your living situation today? I have a [facility] place to live 08/07/2023 Education Answer Date [...] Depression Total Score: 11 024 4:21 PM SCREEN PRINTING INSPECTOR documented as of this encounter Care Teams Senior Training Specialist Relationship Specialty Start Date End Date Randy Martines M.D. [address] [facility] [place] [phone] PCP - General Family Medicine 04/26/22 documented as of this encounter
--- OUTSIDE RECORDS SUMMARY | 2024-02-14 12:56 | XMS_ITS | Referral Summary ---
Author Organization [facility] Address [address] [place] [address] Care Team Providers Care Boom Storage Name Role Phone Randy Martines M.D. Primary Care Provider [phone] Source Comments Patient records contain information from all sites at [facility]. For routine questions regarding patient records, call [phone] during business hours, M-F 8:00 AM - 5:00 PM Central Time. Record requests for emergency care only can be directed to [phone] at any time.[facility] Encounters Date Type Department Care Team Description 01/29/2024 3:30 PM CDT Telemedicine Department of Endocrinology in [address] [phone] Oswaldo Ramos M.D. Hypothyroidism (Primary Dx); Thyroiditis Carol Ann's; Palpitations Discharge Disposition: Home or Self Care 01/01/2024 Clinical Communication Department of Endocrinology in [address] [phone] [place]le, RMollyNMolly labs for endocrine from Last 3 [...] drink = 0.6 oz pur e alcohol) [facility] Utilities Answer Date Recorded In the [...] week 04/21/2022 How often do you attend [facility] or zoroastrian services? Never 04/21/2022 Do you belong to any clubs o r organizations such as sabianism groups, unions, fraternal or athletic groups, or [...] Answer Date Recorded PHQ-2 Score 1 08/08/2023 [facility] of Occupat ional Health - Occupational Stress [...] your living situation today? I have a [facility] place to live 08/07/2023 Education Answer [...] Comments Blood Pressure 132/86 09/16/2023 4:15 PM MANAGER TRACK Pulse 106 09/16/2023 4:15 PM MANAGER TRACK Temperature 36.7 ??C (98.1 ??F) 09/16/2023 4:15 PM CS T Respiratory Rate 20 09/16/2023 4:15 PM MANAGER TRACK Oxygen Saturation 98% 08/08/2023 4:19 PM MANAGER TRACK Inhaled Oxygen Concentration - - Weight 94.3 kg (207 lb 14.3 oz) 01/29/2024 3:22 PM CDT Height 174 cm (5' 8.5) 08/08/2023 4:19 PM MANAGER TRACK Body Mass Index 31.15 08/08/2023 4:19 PM MANAGER TRACK Plan of Treatment Not on file Procedures Procedure Name Priority Date/Time Associated Diagnosis Comments OUTSIDE US BODY Routine 01/31/2024 12:00 PM CDT THYROID FUNCTION CASCADE, S Routine 09/16/2023 5:21 PM MANAGER TRACK Hypothyroidism LIPID PANEL, S Routine 08/08/2023 4:51 PM MANAGER TRACK Screening Condition from Last 3 Months or [...] Provider Not In System IMG US PROCEDURES IIMS NA * (ABNORMAL) Thyroid Function [place] (09/16/2023 5:21 PM MANAGER TRACK) TSH, Sensitive 6.2(H) 0.3 - 4.2 mIU/L 09/16/2023 6:12 PM MANAGER TRACK NPRG Blood (Blood, Venous) 09/16/2023 5:21 PM MANAGER TRACK 09/16/2023 5:35 PM MANAGER TRACK Robbi Nation M.D. LAB BLOOD ADD-ON [facility] [address] [place] [address], [facility] NPRG [facility] [address] [place] [address] * (ABNORMAL) Lipid Panel (08/08/2023 4:51 PM MANAGER TRACK) Triglycerides 266(H) mg/dL 08/08/2023 8:43 PM MANAGER TRACK NPRG Comment: ----REFERENCE VALUE---- Normal: <150 mg/dL Borderline High: 150-199 mg/dL High: 200-499 mg/dL Very High: > or =500 mg/dL Cholesterol, Total 255(H) mg/dL 2023 8:43 PM MANAGER TRACK NPRG Comment: ----REFERENCE VALUE---- Desirable: < 200 mg/dL Borderline High: 200 - 239 mg/dL High: > or = 240 mg/dL Cholesterol, LDL, Calculated 168(H) mg/dL 08/08/2023 8:43 PM MANAGER TRACK NPRG Comment: ----REFERENCE VALUE---- Desirable: <100 mg/dL Above Desirable: 100-129 mg/dL Borderline High: 130-159 mg/dL High: 160-189 mg/dL Very High: >=190 mg/dL ----ADDITIONAL INFORMATION---- LDL cholesterol calculated using the Young/NIH equation. Cholesterol, HDL 37(L) >=40 mg/dL 08/08/19 8:43 PM MANAGER TRACK NPRG Cholesterol, Non-HDL, Calculated 218(H) mg/dL 08/08/2023 8:43 PM MANAGER TRACK NPRG Comment: ----REFERENCE VALUE---- Desirable: <130 mg/dL Above Desirable: 130-159 mg/dL Borderline High: 160-189 mg/dL High: 190-219 mg/dL Very High: > or =220 mg/dL Fasting (8 HR or more) No 08/08/2023 7:23 PM MANAGER TRACK NPRG Blood (Blood, Venous) 08/08/2023 4:51 PM MANAGER TRACK 08/08/2023 7:23 PM MANAGER TRACK Robbi Nation M.D. LAB BLOOD ADD-ON [facility] [address] [place] [address], [facility] NPRG [facility] [address] [place] [address] from Last 3 Months or Most Recently Relevant to Health Maintenance Care Teams Boom Storage Relationship Specialty Start Date End Date Randy Martines M.D. [address] [place] [address] PCP - General Family Medicine 04/26/22
--- OUTSIDE RECORDS SUMMARY | 2024-02-14 12:56 | XMS_ITS ---
Author Organization [facility] Address [address] [place] [address] Care Team Providers Care Associate Professor Of Kinesiology Name Role Phone Unavailable Unavailable Unavailable Surgery Details Not on file Complications Check Surgery Details section. Procedure Estimated Blood Loss Check Surgery Details section. Procedure Findings Check Surgery Details section. Procedure Specimens Taken Check Surgery Details section.
--- NOTE | 2024-02-14 14:03 | ED_ITS ---
HPI - General Adult General Chief complaint: Nausea/Vomiting Stated complaint: vomiting, nausea, trembling Time Seen by Provider: 02/14/24 12:18 History of Present Illness HPI narrative: This patient comes in reporting nausea and vomiting with some tremors. This occurred soon after taking Effexor and Adderall. He is resuming these medicines and has taken them in the past. He did not have a problem with adverse effects previously. He arrives here with normal vital signs except for borderline tachycardia. He states that he did have 2 or 3 episodes of vomiting. He is feeling better at the time of his visit here. Related Data Previous Rx's ?Medication ?Instructions ?Recorded levothyroxine 25 mcg tablet 25 mcg PO QDAY #90 tabs 01/06/24 (Synthroid) sumatriptan succinate 50 mg tablet 50 mg PO Q2-4H #10 tabs 01/06/24 (Imitrex) dextroamphetamine-amphetamine 15 15 mg PO BID #60 tabs 01/14/24 mg tablet (Adderall) venlafaxine 75 mg tablet 75 mg PO QDAY #90 tabs 02/05/24 ondansetron HCl 4 mg tablet 4 mg PO Q6H #6 tabs 02/14/24 Allergies Allergy/AdvReac Type Severity Reaction Status Date / Time No Known Drug Allergies Allergy Verified 02/14/24 12:26 Review of Systems Status of ROS: Reports: 10 or more systems reviewed and unremarkable except as noted in History and below Narrative: Constitutional: No fevers, no weight gain or loss. Eyes: No discharge. No vision changes. HENT: No congestion, no sore throat, no ear pain. Cardiovascular: No chest pain, no palpitations. Respiratory: No shortness of breath, no wheezes, no cough. Gastrointestinal: No abdominal pain, no diarrhea. Nausea with some vomiting. Genitourinary: No dysuria, no hematuria. Musculoskeletal: Normal range of motion. Skin: No rashes, no pruritis. Neurological: No dizziness, weakness, sensory change, speech change. He feels tremulous. Endo/Heme/Allergies: No bruising or bleeding. No polydipsia. Pysch: no suicidality, no anxiety, no insomnia. All other systems reviewed and are negative. [facility] Medical History (Updated 02/14/24 @ 14:06 by James Gaitan MD) ADHD ?F90.9 - Attention-deficit hyperactivity disorder, unspecified type (ICD-10) Migraine headache ?G43.909 - Migraine, unspecified, not intractable, without status migrainosus (ICD-10) IBS (irritable bowel syndrome) ?K58.9 - Irritable bowel syndrome without diarrhea (ICD-10) Hypothyroidism ?E03.9 - Hypothyroidism, unspecified (ICD-10) Hyperlipidemia ?E78.5 - Hyperlipidemia, unspecified (ICD-10) Anxiety ?F41.9 - Anxiety disorder, unspecified (ICD-10) Depression ?F32.A - Depression, unspecified (ICD-10) Family History (Updated 01/01/24 @ 14:36 by Idalmis Bernabe) Brother Depression Anxiety Paternal Grandmother High blood pressure Social History (Updated 01/06/24 @ 10:25 by Judie España ~ [facility], [facility]) What is your current living situation?: I presently have a place to live Problems where you live: no known problems In the past 12 months, utilities in danger of being shut off: no In past 12 months, lack of transportation kept you from medical appts, meetings, work, or getting things needed for daily living: no In the past 12 mos, have been you worried that your food would run out before you had money to buy more?: sometimes true In the past 12 mos, the food you bought just didn't last and you didn't have money to buy more?: never true How often does anyone, including family, friends and others, physically hurt you : never How often does anyone, including family, friends and others, insult or talk down to you: never How often does anyone, including family, friends and others, threaten you with harm: never How often does anyone, including family, friends and others, scream or curse at you: never Little interest or pleasure in doing things: more than half the days Feeling down, depressed, or hopeless: not at all Exam Narrative: Exam Narrative: Constitutional: Well-developed, well-nourished, no acute distress. HEENT: Normocephalic, atraumatic. Neck: Normal range of motion. Nontender. Supple. Heart: Regular. No murmurs. Normal rate. Intact distal pulses. Lungs: Clear to auscultation. No chest discomfort. No wheezes, rhonchi, or rales. Abdomen: Normal bowel sounds. Nontender. No rebound tenderness. Genitalia: Deferred. Back: No midline tenderness. Normal range of motion. Extremities: Normal range of motion. No injury. Skin: Intact. No rash. Warm. No erythema or pallor. Neurologic: No altered sensation. No weakness. Alert and oriented. Psychiatric: No suicidality. No anxiety or depression. No insomnia. Nursing notes and vitals signs are reviewed. Const: Vital Signs, click to edit/add: Vital Signs - 24 hr 02/14/24 12:19 Temperature 97.9 F Pulse Rate [Pulse Oximeter] 105 H Respiratory Rate 16 Blood Pressure [Le ft Upper Arm] 141/99 H Pulse Oximetry 98 Oxygen Delivery Me thod Room Air Course Vital Signs Vital signs: Initial Vital Signs Temperature 97.9 F 02/14/24 12:19 Temperature Source Temporal Artery Scan 02/14/24 12:19 Pulse Rate 105 H 02/14/24 12:19 Respiratory Rate 16 02/14/24 12:19 Blood Pressure 141/99 H 02/14/24 12:19 Blood Pressure Mean 113 H 02/14/24 12:19 Blood Pressure Position Sitting 02/14/24 12:19 Pulse Oximetry 98 02/14/24 12:19 Oxygen Delivery Method Room Air 02/14/24 12:19 Vital Signs Temperature 97.9 F 02/14/24 12:19 Pulse Rate 105 H 02/14/24 12:19 Respiratory Rate 16 02/14/24 12:19 Blood Pressure 141/99 H 02/14/24 12:19 Pulse Oximetry 98 02/14/24 12:19 Oxygen Delivery Method Room Air 02/14/24 12:19 Temperature 97.9 F 02/14/24 12:19 Pulse Rate 105 H 02/14/24 12:19 Respiratory Rate 16 02/14/24 12:19 Blood Pressure 141/99 H 02/14/24 12:19 Pulse Oximetry 98 02/14/24 12:19 Oxygen Delivery Method Room Air 02/14/24 12:19 Medications Administered Medications: Discontinued Medications Generic Name Dose Route Start Last Admin Trade Name Freq PRN Reason Stop Dose Admin Lorazepam 0.5 mg 02/14/24 12:34 02/14/24 12:56 Lorazepam 0.5 Mg Tablet PO 02/14/24 12:35 0.5 mg ONCE ONE Administration Ondansetron HCl 4 mg 02/14/24 12:34 02/14/24 12:56 Ondansetron Odt 4 Mg Tab PO 02/14/24 12:35 4 mg ONCE ONE Administration Medical Decision Making MDM Narrative Medical decision making narrative: This patient appears to be having some adverse effects after taking medications. He arrives with reassuring vital signs and exam. The patient did receive an oral dose of Zofran and Ativan. This brought good relief to his symptoms. He was able to take liquids and feels okay to return home. He did receive a prescription for some tablets of Zofran. I did recommend that he retracted these medicines and follow-up with his primary physician for ongoing management. Discharge Plan Discharge Clinical Impression: Adverse effects of medication Patient Disposition: Home, Self-Care Condition: Improved Additional Instructions: Take medication as needed and directed. Increase diet as tolerated. Follow up with MD for ongoing management or return if worsening. Prescriptions: New ondansetron HCl 4 mg tablet 4 mg PO Q6H Qty: 6 0RF No Action levothyroxine [Synthroid] 25 mcg tablet 25 mcg PO QDAY Qty: 90 3RF sumatriptan succinate [Imitrex] 50 mg tablet 50 mg PO Q2-4H Qty: 10 0RF dextroamphetamine-amphetamine [Adderall] 15 mg tablet 15 mg PO BID Qty: 60 0RF Rx Instructions: administer doses at least 4-6 hours apart venlafaxine 75 mg tablet 75 mg PO QDAY Qty: 90 3RF Follow Up/Referrals: Wicho Guy MD [Primary Care Provider] - Stand Alone Forms: [facility] Info Instructions
== END 2024-02-14 14:11 | disposition home or self-care (01) ==
PROVIDERS: Emergency Provider Emergency Medicine Emergency Medical Services; PCP Internal Medicine
DX: R11.2 Nausea with vomiting, unspecified (principal); T43.215A Adverse effect of selective serotonin and norepinephrine reuptake inhibitors, initial encounter
CPT/HCPCS: 99283; 99284; A9270

== ENCOUNTER 2024-03-31 15:42 | Outpatient (CLI) | payer OTHER, SELFPAY ==
--- OUTSIDE RECORDS SUMMARY | 2024-03-31 15:46 | XMS_ITS | Clinical Summary ---
Author Organization [facility] Address [address] [place] [address] Care Team Providers Care Stockroom Attendant Name Role Phone Randy Martines M.D. Primary Care Provider [phone] Source Comments Patient records contain information from all sites at [facility]. For routine questions regarding patient records, call [phone] during business hours, M-F 8:00 AM - 5:00 PM Central Time. Record requests for emergency care only can be directed to [phone] at any time.[facility] Allergies No known active allergies Medications Medication [...] tablet 1 09/05/2023 Active levothyroxine 75 mcg tabletIndications:H ypothyroidism Take 1 tablet (75 mcg total) by mouth daily before morning meal. 90 tablet 3 01/29/2024 Active Active Problems Problem Noted Date Diagnosed Date Hypothyroidism 01/29/2024 Palpitations 01/29/2024 Thyroiditis Carol Ann's 01/29/2024 Hyperlipidemia Mixed 04/26/2022 Anxiety Generalized Disorder 04/26/2022 Depression Major Recurrent Full Remission 2021 Migraine Headache 04/26/2022 Encounters Date Type Department Care Team Description 03/09/2024 Clinical Communication Department of Endocrinology in [address] [phone] Oswaldo Ramos M.D. 02/23/2024 Orders Only Department of Family Medicine in [address] [phone] Robbi Nation M.D. 01/29/2024 3:30 PM CDT Telemedicine Department of Endocrinology in [address] [phone] Oswaldo Ramos M.D. Hypothyroidism (Primary Dx); Thyroiditis Carol Ann's; Palpitations Discharge Disposition: Home or Self Care 01/01/2024 Clinical Communication Department of Endocrinology in [address] [phone] [place], Michelle An, R.N. labs for endocrine from Last 3 [...] Depression Father Alex Crum Asthma Paternal Grandmother Torykeli Crum Diabetes Paternal Grandmother Tory Radames Diabetes type II Paternal Grandmother Tory Radames Hyperlipidemia Paternal Grandmother Tory Crum Hypertension Paternal Grandmother Tory Crum Relation Name Status Comments Father Alex Crum Alive Paternal Grandmother Tory Crum Alive Social History Tobacco Use Types Packs/Day Years Used Date Smoking Tobacco: Never Passive Smoke Exposure: Never Smokeless Tobacco: Never Tobacco Cessation:Counseling Given: Yes Alcohol Use Standard Drinks/Week Comments Never 0 (1 standard drink = 0.6 oz pur e alcohol) [facility] Utilities Answer Date Recorded In the past 12 months has e [employer], gas, oil, or water [employer] threatened to shut off services in your [...] often do you attend chur ch or rastafari services? Never 04/21/2022 Do you belong to any clubs o r organizations such as catholic groups, unions, fraternal or athletic groups, or [...] Answer Date Recorded PHQ-2 Score 1 08/08/2023 [facility] Occupat ional [facility] - Occupational Stress Questionnaire Answer Date [...] Date Recorded Dental: Regular Dentist Yes 04/21/20 22 Employment Answer Date Recorded Employment status Employed and actively working without restrictions 08/07/2023 Housing Stability Answer Date Recorded What is your living situation today? I have a [facility] place to live 08/07/2023 Education Answer [...] Comments Blood Pressure 132/86 09/16/2023 4:15 PM QUAL RESEARCH MANAGER Pulse 106 09/16/2023 4:15 PM QUAL RESEARCH MANAGER Temperature 36.7 ??C (98.1 ??F) 09/16/2023 4:15 PM CS T Respiratory Rate 20 09/16/2023 4:15 PM QUAL RESEARCH MANAGER Oxygen Saturation 98% 08/08/2023 4:19 PM QUAL RESEARCH MANAGER Inhaled Oxygen Concentration - - Weight 94.3 kg (207 lb 14.3 oz) 01/29/2024 3:22 PM CDT Height 174 cm (5' 8.5) 08/08/2023 4:19 PM QUAL RESEARCH MANAGER Body Mass Index 31.15 08/08/2023 4:19 PM QUAL RESEARCH MANAGER Plan of Treatment Health Maintenance Due Date Last Done Comments HIV Screening 2000 Hepatitis C Screening 2000 HPV Vaccines (1 - Male 3-dose series) 01/17/2015 Depression Monitoring (PHQ-9) 12/07/2023 08/08/2023 COVID-19 Vaccine (4 - season) 2024 05/02/2022, 12/01/2020, 11/10/2020 Influenza Vaccine (#1) 2024 , 07/10/2021, 08/09/2009, Additional history exists Thyroid Stimulating Hormone (TSH) test for thyroid function 09/16/2024 09/16/2023, 08/08/2023, 08/05/2023 Lipid (Cholesterol) Screening 08/08/2028 08/08/2023 DTaP,Tdap,and Td Vaccines (3 - Td or Tdap) 04/26/2032 04/26/2022, 03/11/2012 Varicella Vaccines Completed 03/20/2022, 03/11/2012 Hepatitis B Vaccines Completed 05/09/2022, 04/26/2022, 03/20/2022 Pneumococcal vaccine (0-64 years) Aged Out No longer eligible based on patient's age to complete this topic Procedures Procedure Name Priority Date/Time Associated Diagnosis Comments OUTSIDE US BODY Routine 01/31/2024 12:00 PM CDT THYROID FUNCTION CASCADE, S Routine 09/16/2023 5:21 PM QUAL RESEARCH MANAGER Hypothyroidism LIPID PANEL, S Routine 08/08/2023 4:51 PM QUAL RESEARCH MANAGER Screening Condition from Last 3 Months or [...] Provider Not In System IMG US PROCEDURES IIGA NA * (ABNORMAL) Thyroid Function Placer (09/16/2023 5:21 PM QUAL RESEARCH MANAGER) TSH, Sensitive 6.2(H) 0.3 - 4.2 mIU/L 09/16/2023 6:12 PM QUAL RESEARCH MANAGER NPRG Blood (Blood, Venous) 09/16/2023 5:21 PM QUAL RESEARCH MANAGER 09/16/2023 5:35 PM QUAL RESEARCH MANAGER Robbi Nation M.D. LAB BLOOD ADD-ON [facility] [address] [place] [address], [place] NPRG [facility] [address] [place] [address] * (ABNORMAL) Lipid Panel (08/08/2023 4:51 PM QUAL RESEARCH MANAGER) Triglycerides 266(H) mg/dL 08/08/2023 8:43 PM QUAL RESEARCH MANAGER NPRG Comment: ----REFERENCE VALUE---- Normal: <150 mg/dL Borderline High: 150-199 mg/dL High: 200-499 mg/dL Very High: > or =500 mg/dL Cholesterol, Total 255(H) mg/dL 2023 8:43 PM QUAL RESEARCH MANAGER NPRG Comment: ----REFERENCE VALUE---- Desirable: < 200 mg/dL Borderline High: 200 - 239 mg/dL High: > or = 240 mg/dL Cholesterol, LDL, Calculated 168(H) mg/dL 08/08/2023 8:43 PM QUAL RESEARCH MANAGER NPRG Comment: ----REFERENCE VALUE---- Desirable: <100 mg/dL Above Desirable: 100-129 mg/dL Borderline High: 130-159 mg/dL High: 160-189 mg/dL Very High: >=190 mg/dL ----ADDITIONAL INFORMATION---- LDL cholesterol calculated using the Young/NIH equation. Cholesterol, HDL 37(L) >=40 mg/dL 08/08/19 8:43 PM QUAL RESEARCH MANAGER NPRG Cholesterol, Non-HDL, Calculated 218(H) mg/dL 08/08/2023 8:43 PM QUAL RESEARCH MANAGER NPRG Comment: ----REFERENCE VALUE---- Desirable: <130 mg/dL Above Desirable: 130-159 mg/dL Borderline High: 160-189 mg/dL High: 190-219 mg/dL Very High: > or =220 mg/dL Fasting (8 HR or more) No 08/08/2023 7:23 PM QUAL RESEARCH MANAGER NPRG Blood (Blood, Venous) 08/08/2023 4:51 PM QUAL RESEARCH MANAGER 08/08/2023 7:23 PM QUAL RESEARCH MANAGER Robbi Nation M.D. LAB BLOOD ADD-ON [facility] [address] [place] [address], [facility] NPRG [facility] [address] [place] [address] from Last 3 Months or Most Recently Relevant to Health Maintenance Care Teams Stockroom Attendant Relationship Specialty Start Date End Date Randy Martines M.D. [address] [place] [phone] PCP - General Family Medicine 04/26/22
--- OUTSIDE RECORDS SUMMARY | 2024-03-31 15:47 | XMS_ITS ---
Author Organization [facility] Address [address] [place] [address] Care Team Providers Care Pourer Crane Ladle Name Role Phone Unavailable Unavailable Unavailable Surgery Details Not on file Complications Check Surgery Details section. Procedure Estimated Blood Loss Check Surgery Details section. Procedure Findings Check Surgery Details section. Procedure Specimens Taken Check Surgery Details section.
--- OUTSIDE RECORDS SUMMARY | 2024-03-31 15:47 | XMS_ITS | Encounter Summary ---
Author Organization [facility] Address [address] [place] [address] Care Team Providers Care Auditing Coder Name Role Phone Randy Martines M.D. Primary Care Provider Encounter Details Date Type Department Care Team (Latest Contact Info) Description 03/09/2024 Clinical Communication Department of Endocrinology in [place], [place] [address] [place] [phone] Oswaldo Ramos M.D. [address] [place] [phone] Social History Tobacco Use Types Packs/Day Years Used Date Smoking Tobacco: Never Passive Smoke Exposure: Never Smokeless Tobacco: Never Alcohol Use Standard Drinks/Week Comments Never 0 (1 standard drink = 0.6 oz pur e alcohol) [facility] Utilities Answer Date Recorded In the past 12 months has [facility] [employer], oil, or water [employer] threatened to shut off services in your [...] 04/21/2022 How often do you attend chur or quaker services? Never 04/21/2022 Do you belong to any clubs o r organizations such as nondenominational groups, unions, fraternal or athletic groups, or [...] Answer Date Recorded PHQ-2 Score 1 08/08/2023 [facility] Questionnaire Answer Date [...] your living situation today? I have a [facility] place to live 08/07/2023 Education Answer Date [...] Notes * Telephone Encounter - Michelle Pena RMollyN. - 03/09/2024 9:21 AM CDT Labs faxed documented in this encounter Plan of Treatment Not on file documented as of this encounter Visit Diagnoses Not on filedocumented in this encounter Additional Health Concerns Assessment Noted Time PHQ-9 Depression Total Score: 11 024 4:21 PM STRIKER OFF documented as of this encounter Care Teams Auditing Coder Relationship Specialty Start Date End Date Randy Martines M.D. [address] [place] [place] [phone] PCP - General Family Medicine 04/26/22 documented as of this encounter
--- OUTSIDE RECORDS SUMMARY | 2024-03-31 15:47 | XMS_ITS | Encounter Summary ---
Author Organization [facility] Address [address] [place] [address] Care Team Providers Care Biology Department Chair Name Role Phone Randy Martines M.D. Primary Care Provider [phone] Reason for Referral * Outpatient (Routine) - Authorized Specialty Diagnoses / Procedures Referred By Nicolette martinez Referred To Contact Diagnoses Hypothyroidism Thyroiditis Carol Ann's Procedures US Thyroid Oswaldo Ramos M.D. [address] [place] [address] [facility] Referral ID Status Reason Start Date Expiration Date V isits Requested Visits Authorized [id number] Authorized 01/29/2024 01/28/2025 1 1 Reason for Visit * Reason Comments Hypothyroidism * Outpatient (Routine) - Closed Specialty Diagnoses / Procedures Referred By Nicolette martinez Referred To Contact Endocrinology Diagnoses Hypothyroidism Robbi Nation M.D. [address] [place] [address] [facility] Referral ID Status Reason Start Date Expiration Date Visits Re quested Visits Authorized [id number] Closed 09/20/2023 03/21/2025 1 1 Encounter Details Date Type Department Care Team (Latest Contact Info) Description 01/29/2024 3:30 PM CDT Telemedicine Department of Endocrinology in [place], [place] [address] [place] [phone] Oswaldo Ramos M.D. [address] [place] [address] Hypothyroidism (Primary Dx); Thyroiditis Carol Ann's; Palpitations Discharge Disposition: Home or Self Care Social History Tobacco Use Types Packs/Day Years Used Date Smoking Tobacco: Never Passive Smoke Exposure: Never Smokeless Tobacco: Never Alcohol Use Standard Drinks/Week Comments Never 0 (1 standard drink = 0.6 oz pur e alcohol) [facility] Utilities Answer Date Recorded In the past 12 months has e [employer], gas, oil, or water [employer] threatened to shut off services in your [...] often do you attend chur ch or tenriism services? Never 04/21/2022 Do you belong to any clubs o r organizations such as episcopalian groups, unions, fraternal or athletic groups, or [...] Answer Date Recorded PHQ-2 Score 1 08/08/2023 [facility] of Occupat ional Health - Occupational Stress [...] Body Mass Index 31.15 08/08/2023 4:19 PM ORAL SURGERY ASSISTANT documented in this encounter Consult Notes * Oswaldo Ramos M.D. - 01/29/2024 3:30 PM CDT Endocrinology Clinic Note New Consult Date:01/29/2024 Visit conducted via real-time audio/video technology by Oswaldo Ramos M.D. in [facility] to the patient in patient's home in [place], [place] Chief Complaint Hypothyroidism Referred by Robbi [...] Age of Onset Anxiety disorder Father Alex Curm Depression Father Alex Crum Alcohol abuse Father Alex Crum Diabetes type II Paternal Grandmother Tory Crum Asthma Paternal Grandmother Tory Crum Hypertension Paternal Grandmother Tory Crum Hyperlipidemia Paternal Grandmother Tory Crum Diabetes Paternal Grandmother Tory Curm No Known Allergies Current Outpatient Medications Medication Sig Dispense Refill levothyroxine 75 mcg tablet Take 1 tablet (75 mcg total) by mouth daily before morning meal. 90 tablet 3 Adderall XR 20 mg 24 hr capsule Take 20 mg by mouth every morning. Not taking currently will be contacting [facility] to get dosage cut in half. [...] Depression Total Score: 11 024 4:21 PM ORAL SURGERY ASSISTANT documented as of this encounter Care Teams Biology Department Chair Relationship Specialty Start Date End Date Randy Martines M.D. [address] [place] [address] PCP - General Family Medicine 04/26/22 documented as of this encounter
--- OUTSIDE RECORDS SUMMARY | 2024-03-31 15:47 | XMS_ITS | Referral Summary ---
Author Organization [facility] Address [address] [place] [address] Care Team Providers Care Wildlife Refuge Manager Name Role Phone Randy Martines M.D. Primary Care Provider [phone] Source Comments Patient records contain information from all sites at [facility]. For routine questions regarding patient records, call [phone] during business hours, M-F 8:00 AM - 5:00 PM Central Time. Record requests for emergency care only can be directed to [phone] at any time.[facility] Encounters Date Type Department Care Team Description 03/09/2024 Clinical Communication Department of Endocrinology in [address] [phone] Oswaldo Ramos M.D. 02/23/2024 Orders Only Department of Family Medicine in [address] [phone] Robbi Nation M.D. 01/29/2024 3:30 PM CDT Telemedicine Department of Endocrinology in [address] [phone] Oswaldo Ramos M.D. Hypothyroidism (Primary Dx); Thyroiditis Carol Ann's; Palpitations Discharge Disposition: Home or Self Care 01/01/2024 Clinical Communication Department of Endocrinology in [address] [phone] [place], Michelle An, R.N. labs for endocrine from [...] morning. Not taking currently will be contacting [facility] to get dosage cut in half. 02/19/2022 [...] drink = 0.6 oz pur e alcohol) [facility] Utilities Answer Date Recorded In the past 12 months has th e electric, gas, oil, or water company [...] often do you attend chur ch or anglican services? Never 04/21/2022 Do you belong to any clubs o r organizations such as evangelical groups, unions, fraternal or athletic groups, or [...] Answer Date Recorded PHQ-2 Score 1 08/08/2023 [place] of Occupat ional Health - Occupational Stress [...] Comments Blood Pressure 132/86 09/16/2023 4:15 PM PRIVATE SECRETARY Pulse 106 09/16/2023 4:15 PM PRIVATE SECRETARY Temperature 36.7 ??C (98.1 ??F) 09/16/2023 4:15 PM CS T Respiratory Rate 20 09/16/2023 4:15 PM PRIVATE SECRETARY Oxygen Saturation 98% 08/08/2023 4:19 PM PRIVATE SECRETARY Inhaled Oxygen Concentration - - Weight 94.3 kg (207 lb 14.3 oz) 01/29/2024 3:22 PM CDT Height 174 cm (5' 8.5) 08/08/2023 4:19 PM PRIVATE SECRETARY Body Mass Index 31.15 08/08/2023 4:19 PM PRIVATE SECRETARY Plan of Treatment Not on file Procedures Procedure Name Priority Date/Time Associated Diagnosis Comments OUTSIDE US BODY Routine 01/31/2024 12:00 PM CDT THYROID FUNCTION CASCADE, S Routine 09/16/2023 5:21 PM PRIVATE SECRETARY Hypothyroidism LIPID PANEL, S Routine 08/08/2023 4:51 PM PRIVATE SECRETARY Screening Condition from Last 3 Months or [...] PROCEDURES IIMS NA * (ABNORMAL) Thyroid Function [place] (09/16/2023 5:21 PM PRIVATE SECRETARY) TSH, Sensitive 6.2(H) 0.3 - 4.2 mIU/L 09/16/2023 6:12 PM PRIVATE SECRETARY NPRG Blood (Blood, Venous) 09/16/2023 5:21 PM PRIVATE SECRETARY 09/16/2023 5:35 PM PRIVATE SECRETARY Robbi Nation M.D. LAB BLOOD ADD-ON [facility] [address] [place] [address], [facility] NPRG [facility] [address] [place] [address] * (ABNORMAL) Lipid Panel (08/08/2023 4:51 PM PRIVATE SECRETARY) Triglycerides 266(H) mg/dL 08/08/2023 8:43 PM PRIVATE SECRETARY NPRG Comment: ----REFERENCE VALUE---- Normal: <150 mg/dL Borderline High: 150-199 mg/dL High: 200-499 mg/dL Very High: > or =500 mg/dL Cholesterol, Total 255(H) mg/dL 2023 8:43 PM PRIVATE SECRETARY NPRG Comment: ----REFERENCE VALUE---- Desirable: < 200 mg/dL Borderline High: 200 - 239 mg/dL High: > or = 240 mg/dL Cholesterol, LDL, Calculated 168(H) mg/dL 08/08/2023 8:43 PM PRIVATE SECRETARY NPRG Comment: ----REFERENCE VALUE---- Desirable: <100 mg/dL Above Desirable: 100-129 mg/dL Borderline High: 130-159 mg/dL High: 160-189 mg/dL Very High: >=190 mg/dL ----ADDITIONAL INFORMATION---- LDL cholesterol calculated using the Young/NIH equation. Cholesterol, HDL 37(L) >=40 mg/dL 08/08/19 8:43 PM PRIVATE SECRETARY NPRG Cholesterol, Non-HDL, Calculated 218(H) mg/dL 08/08/2023 8:43 PM PRIVATE SECRETARY NPRG Comment: ----REFERENCE VALUE---- Desirable: <130 mg/dL Above Desirable: 130-159 mg/dL Borderline High: 160-189 mg/dL High: 190-219 mg/dL Very High: > or =220 mg/dL Fasting (8 HR or more) No 08/08/2023 7:23 PM PRIVATE SECRETARY NPRG Blood (Blood, Venous) 08/08/2023 4:51 PM PRIVATE SECRETARY 08/08/2023 7:23 PM PRIVATE SECRETARY Robbi Nation M.D. LAB BLOOD ADD-ON [facility] [address] [place] [address], [place] NPRG [facility] [address] [place] [address] from Last 3 Months or Most Recently Relevant to Health Maintenance Care Teams Wildlife Refuge Manager Relationship Specialty Start Date End Date Randy Martines M.D. [address] [place] [address] PCP - General Family Medicine 04/26/22
--- OUTSIDE RECORDS SUMMARY | 2024-03-31 15:47 | XMS_ITS | Encounter Summary ---
Author Organization [facility] Address [address] [place] [address] Care Team Providers Care Dielectric Press Operator Name Role Phone Randy Martines M.D. Primary Care Provider [phone] Encounter Details Date Type Department Care Team (Late st Contact Info) Description 02/23/2024 Orders Only Department of Family Medicine in [address] [phone] Robbi Nation M.D. [address] [place] [phone] Social History Tobacco Use Types Packs/Day Years Used Date Smoking Tobacco: Never Passive Smoke Exposure: Never Smokeless Tobacco: Never Alcohol Use Standard Drinks/Week Comments Never 0 (1 standard drink = 0.6 oz pur e alcohol) [facility] Utilities Answer Date Recorded In the past 12 months has [facility] [employer], oil, or water [employer] threatened to shut off services in your [...] often do you attend chur ch or congregation services? Never 04/21/2022 Do you belong to any clubs o r organizations such as confucianism groups, unions, fraternal or athletic groups, or [...] Answer Date Recorded PHQ-2 Score 1 08/08/2023 [facility] of Occupat ional Health - Occupational Stress [...] your living situation today? I have a [facility] place to live 08/07/2023 Education Answer Date [...] AM CDT documented as of this encounter Plan of Treatment Not on file documented as of this encounter Visit Diagnoses Not on filedocumented in this encounter Additional Health Concerns Assessment Noted Time PHQ-9 Depression Total Score: 11 024 4:21 PM CHART PICKER documented as of this encounter Care Teams Dielectric Press Operator Relationship Specialty Start Date End Date Randy Martines M.D. [address] [place] [phone] PCP - General Family Medicine 04/26/22 documented as of this encounter
--- OUTSIDE RECORDS SUMMARY | 2024-03-31 15:47 | XMS_ITS | Encounter Summary ---
Author Organization [facility] Address [address] [place] [address] Care Team Providers Care Hvac Design Mechanical Engineer Name Role Phone Randy Martines M.D. Primary Care Provider Reason for Visit * Reason Onset Date Comments labs for endocrine 01/01/2024 Encounter Details Date Type Department Care Team (Latest Contact Info) Description 01/01/2024 Clinical Communication Department of Endocrinology in [place], [place] [address] [place] [phone] Ann[place], RMollyN. [address] [place] [phone] labs for endocrine Social History Tobacco Use Types Packs/Day Years Used Date Smoking Tobacco: Never Passive Smoke Exposure: Never Smokeless Tobacco: Never Alcohol Use Standard Drinks/Week Comments Never 0 (1 standard drink = 0.6 oz pur e alcohol) [facility] Utilities Answer Date Recorded In the past 12 months has [facility] [employer], oil, or water [email or web address] threatened to shut off services in your [...] often do you attend chur ch or hinduism services? Never 04/21/2022 Do you belong to any clubs o r organizations such as yarsani groups, unions, fraternal or athletic groups, or [...] Answer Date Recorded PHQ-2 Score 1 08/08/2023 [facility] of Occupat ionne Health - Occupational Stress Questionnaire Answer Date [...] your living situation today? I have a [facility] place to live 08/07/2023 Education Answer Date [...] Depression Total Score: 11 024 4:21 PM CAT SWAMPER documented as of this encounter Care Teams Hvac Design Mechanical Engineer Relationship Specialty Start Date End Date Randy Martines M.D. [address] [facility] [place] [phone] PCP - General Family Medicine 04/26/22 documented as of this encounter
[2024-03-31 16:58] LABS: Free T4 Free Thyroxine* 1.16 ng/dL (0.70-1.85)
== END 2024-03-31 15:43 | disposition home or self-care (01) ==
PROVIDERS: PCP Internal Medicine; Visit Provider Internal Medicine Endocrinology, Diabetes & Metabolism
DX: R00.2 Palpitations (principal); E03.9 Hypothyroidism, unspecified; E06.3 Autoimmune thyroiditis
CPT/HCPCS: 36415; 83835; 84439; 84443

== ENCOUNTER 2024-04-22 14:01 | Outpatient (CLI) | payer OTHER, SELFPAY | END 2024-04-22 14:02 | disposition home or self-care (01) | LOC: NFLDREF 14:02 | PROVIDERS: PCP Internal Medicine; Visit Provider Internal Medicine | DX: K62.5 Hemorrhage of anus and rectum (principal) | CPT/HCPCS: 85610 ==

== ENCOUNTER 2025-07-13 09:15 | Outpatient (CLI) | payer OTHER, SELFPAY | END 2025-07-13 09:16 | disposition home or self-care (01) | LOC: NFLDREF 07-16 04:35 | PROVIDERS: PCP Internal Medicine; Referring Provider Internal Medicine; Visit Provider Internal Medicine | DX: E78.5 Hyperlipidemia, unspecified (principal); E03.9 Hypothyroidism, unspecified; Z13.9 Encounter for screening, unspecified | CPT/HCPCS: 80053; 80061; 84439; 84443 ==